=== PATIENT | male | born 1995 | race Caucasian/White ===

== ENCOUNTER 2017-04-28 15:30 | Emergency (ER) | payer SELFPAY ==
[2017-04-28 16:44] VITALS: BP 118/68
--- NOTE | 2017-04-28 18:50 | ED Physician Documentation ---
General Adult - HISTORIAN Historian: patient, friend - [facility] Stated Complaint: Lower back pain Chief Complaint: General Adult Further Comments: yes (21 year old male patient presents with complaints of low back pain for the past 2 years. Patient denies injury, fall or heavy lifting. States he does not have health insurance, so he came to the ER. States the nurse at work told him to come to the ER. Patient has not used any OTC medicaitons today.) - ROS CONST: no problems EYES/ENT: none CVS/RESP: none GI/: none MS/SKIN/LYMPH: none NEURO/PSYCH: denies: headache, fainting, dizziness, tingling, numbness, difficulty walking, difficulty with speech, anxiety, depression, other - PAST HX Past History: none Other History: other (left club foot) Surgeries/Procedures: none Allergies/Adverse Reactions: Allergies Allergy/AdvReac Type Severity Reaction Status Date / Time No Known Allergies Allergy Unverified 04/28/17 15:50 Home Medications: Ambulatory Orders Medication Instructions Recorded NK [NK] 04/28/17 - SOCIAL HX Smoking History: cigarettes Alcohol Use: none Drug Use: none - FAMILY HX Family History: No - VITAL SIGNS Vital Signs: Vital Signs Temp Pulse Resp BP Pulse Ox 98.7 F 65 16 118/68 99 04/28/17 15:35 04/28/17 16:25 04/28/17 16:25 04/28/17 16:25 04/28/17 16:25 - REVIEWED ASSESSMENTS Nursing Assessment Reviewed: Yes Vitals Reviewed: Yes Progress - Progress Progress: Patient works at [employer], doing manual labor. Discussed proper use of ER. List of free clinics in [place] provided. Discussed treatment options, patient does not want xray or CT due to cost. Discussed medication options. Patient states he does not have prescription insurance. Recommended ibuprofen 800mg po tid x 5 days and establish PCP at one of the free clinics. General Adult Physical Exam - PHYSICAL EXAM GENERAL APPEARANCE: [id number] N EENT: eye inspection normal, [place] RESPIRATORY: no resp distress, chest non-tender, breath sounds normal CVS: reg rate & rhythm, heart sounds normal, equal pulses, no murmur, no gallop , PMI nml, no JVD, no friction rub, 24 ABDOMEN: soft, no organomegaly, normal bowel sounds, no abdominal bruit, no distension BACK: normal inspection, no CVA tenderness, other (c/o mild discomfort in paraspinous muscles. ) SKIN: normal color, warm/dry, NR, INT, PAL, DR EXTREMITIES: non-tender, normal range of motion, no evidence of injury, no edema , J, DOCTOR OSTEOPATHIC NEURO: oriented X3, CN's nml as tested, motor nml, sensation nml, mood/affect nml Discharge Clincal Impression: Low back pain Qualifiers: Chronicity: unspecified Back pain laterality: bilateral Sciatica presence: without sciatica Qualified Code(s): M54.5 - Low back pain Referrals: Primary Doctor,No [Primary Care Provider] - 2 Days Additional Instructions: Ice Rest Elevation If you are unable to bear weight and continuing to have signficant pain on day 5 -7; see your PCP for re-evaluation and additional xrays. You may use Tylenol every 4hour as needed for pain. Limit your dose to less than 4 G per day. You may want to try massage, over the counter lidocaine patches, biofreeze, jhonny sorto or aspercream . Alternate with Ibuprofen 600-800mg three times a day with food as needed. Do not take for more than 5 days in a row. Home Medications: Ambulatory Orders NK [NK] 04/28/17 Condition: Good Disposition: 01 HOME, SELF-CARE Decision to Admit: NO Decision Time: 16:20
== END 2017-04-28 16:26 | disposition home or self-care (01) ==
LOC: ED 15:30
DX: M54.5 Low back pain (principal)
CPT/HCPCS: 99283